=== PATIENT | male | born 1985 | race Caucasian/White ===

== ENCOUNTER → 2024-01-21 13:30 | Outpatient (BNV) | payer OTHER, SELFPAY | PROVIDERS: Visit Provider Psychiatry & Neurology Psychiatry | DX: F43.12 Post-traumatic stress disorder, chronic (principal); F63.89 Other impulse disorders; F33.9 Major depressive disorder, recurrent, unspecified; F41.3 Other mixed anxiety disorders; F69 Unspecified disorder of adult personality and behavior; F48.9 Nonpsychotic mental disorder, unspecified; F12.980 Cannabis use, unspecified with anxiety disorder | CPT/HCPCS: 90792; 99213 ==

== ENCOUNTER 2024-01-31 13:30 | Outpatient (RCR) | payer OTHER, SELFPAY ==
[2024-01-18 11:00] VITALS: BMI 68.1
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
[2024-01-18 12:27] VITALS: BP 130/82; PULSE 81; TEMP 36.4
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
--- NOTE | 2024-01-24 15:37 | HO.PHP ---
Client's case has been opened and reviewed in team.
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
--- NOTE | 2024-01-31 21:11 | HO.PHPPROGNO ---
Subjective Subjective Date of Service: 01/31/24 Reason For Visit: PTSD Interim History: Patient seen for follow-up, anticipating discharge at the end of program today.? Overall I'm feeling more positive . He is feeling more stable not triggered . I learned coping but still need to be used . Recognizing that he experiences cognitive dissonance. Feels more in control. Has been moving up on Trileptal and is at 600 mg BID past day. Denies adverse effects. Some improvement, feels he could titrate the dose but will hold off until provider. Says he still distrusts his family who are money hungry and different priorities than he has. He denies AI/HI and says he rather just not engage with them. Denies acute issues or concerns. Medication compliant, medications well-tolerated. Denies any adverse effects.? Mood is stable, improvements with impulsivity. Denies any hopelessness or SI. Denies thoughts of harming self or others at this time. Denies any aggressive ideation or HI. Denies any paranoia or AH or VH. Sleep, appetite, energy stable. Mental Status Exam Mental Status Exam Narrative: Alert, oriented, in no acute distress. Calm, cooperative. Mood stable, affect appropriate, calmer, less emotionally reactive. Speech normal. Thought process linear, coherent, more goal-directed. Thought content related to stressors, future-oriented,less impulsive behaviors, denies any helplessness, hopelessness or SI.? No aggressive ideation or HI. No paranoia or delusional content elicited. No evidence of psychosis. Insight and judgment fair-good. Diagnostics Vital Signs (24Hr): BMI result Body Mass Index 68.1 Assessment & Plan Assessment & Plan (1) Chronic post-traumatic stress disorder (PTSD): Status: Acute Code(s): F43.12 - Post-traumatic stress disorder, chronic (2) Other disorder of impulse control: Status: Acute Code(s): F63.89 - Other impulse disorders (3) MDD (major depressive disorder), recurrent episode: Status: Acute Code(s): F33.9 - Major depressive disorder, recurrent, unspecified (4) Other mixed anxiety disorders: Status: Acute Code(s): F41.3 - Other mixed anxiety disorders (5) Mental and behavioral problem in adult: Status: Acute Code(s): F69 - Unspecified disorder of adult personality and behavior; F48.9 - Nonpsychotic mental disorder, unspecified Assessment and Plan: r/o cluster B traits (6) Cannabis use with anxiety disorder: Status: Acute Code(s): F12.980 - Cannabis use, unspecified with anxiety disorder Plan Discharge from [facility] Continue regular medications Refills sent to pharmacy Will defer further medication management to outpatient provider *Safety plan reviewed *Discharge diagnoses, treatment course, discharge plan have been reviewed with patient (including medication regime, medication management, potential side effects) as well as treatment rationale were also revisited *Discharge paperwork signed and given to patient, copy sent for scanning to chart Patient educated on: diagnosis, medication risk/benefits and substance abuse Informed Consent: understands Reason for contiued partial hosp. stay Substantial Risk for: stable for discharge Certification I certify that partial hospital treatment is medically necessary due to the symptoms and problems resulting from the patient's mental illness and the failure to treat the patient at the partial hospital level of care would likely result in the patient requiring inpatient psychiatric care which could not be prevented at a less intensive level of care. Total time managing care of this patient today _30___ minutes. Discharge Plan Discharge Attending provider: Temitope De La Torre Medications: New oxcarbazepine 600 mg tablet 600 mg PO BID Qty: 30 0RF Continued atorvastatin 20 mg tablet 20 mg PO DAILY sertraline 100 mg tablet 200 mg PO BEDTIME hydroxyzine pamoate 50 mg capsule 50 - 100 mg PO BEDTIME PRN (Reason: insomnia) clindamycin phosphate 1 % gel 1 appl topical BID PRN (Reason: cysts) Rx Instructions: Apply to cysts twice a day. metformin 1,000 mg tablet 1,000 mg PO BID lisinopril-hydrochlorothiazide 10-12.5 mg tablet 1 tab PO DAILY risperidone 0.5 mg tablet 0.5 mg PO TID PRN (Reason: agitation/anxiety) bupropion HCl 300 mg tablet extended release 24 hr 300 mg PO DAILY bupropion HCl 150 mg tablet extended release 24 hr 150 mg PO QAM melatonin 5 mg tablet 5 - 10 mg PO BEDTIME PRN (Reason: insomnia) Rybelsus 3 mg Tablet 3 mg PO DAILY Changed clonidine HCl 0.2 mg tablet 0.2 mg PO QID PRN (Reason: anxiety, sleep) Qty: 30 0RF Stand Alone Forms: Patient Portal Discharge page Patient Education: Post Traumatic Stress Disorder (DC) Print Language: Chilean
== END 2024-01-31 23:59 | disposition home or self-care (01) ==
LOC: HO.PHPA 13:30
PROVIDERS: Visit Provider Psychiatry & Neurology Psychiatry
DX: F43.12 Post-traumatic stress disorder, chronic (principal); F63.89 Other impulse disorders; F33.9 Major depressive disorder, recurrent, unspecified; F41.3 Other mixed anxiety disorders; F69 Unspecified disorder of adult personality and behavior; F48.9 Nonpsychotic mental disorder, unspecified; F12.980 Cannabis use, unspecified with anxiety disorder; Z79.899 Other long term (current) drug therapy
CPT/HCPCS: 90791; 90853

== ENCOUNTER → 2025-01-26 10:15 | Outpatient (BNV) | payer OTHER, SELFPAY | PROVIDERS: Visit Provider Psychiatry & Neurology Psychiatry | DX: F43.12 Post-traumatic stress disorder, chronic (principal); F63.89 Other impulse disorders; F33.9 Major depressive disorder, recurrent, unspecified; F41.3 Other mixed anxiety disorders; F12.980 Cannabis use, unspecified with anxiety disorder | CPT/HCPCS: 90792 ==

== ENCOUNTER 2025-02-13 10:15 | Outpatient (RCR) | payer OTHER, SELFPAY ==
[2025-01-23 11:30] VITALS: BP 124/80; PULSE 78; RESP 18; TEMP 36.4; BMI 70.2
--- NOTE | 2025-01-26 10:42 | PC.ADMIT ---
Irving is a 40 year old male referred to [facility] by his therapist Laurie Xavier. When asked how he felt he reported endorsing 10/10 depression, 5/10 anxiety, when asked if he had any thoughts of wanting to hurt or kill self stated No. When asked if he had any thoughts of wanting to hurt or kill others stated No. He reports that he lost his cat three weeks ago, That was a huge loss for me, I had him for fourteen years. He also talks about how the loss of his mother to date still affects him. He reports struggling with childhood memories and trauma. He stated I don't know how much this program is going to help as I don't like being around people. He was given given education on the program as well ass we discussed some individual goals. He reports that he has a good support system at home girlfriend, sister and therapist are very supportive. Safety plan reviewed, he was given a copy.
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
--- NOTE | 2025-01-29 16:26 | HO.IOP ---
Client's case was opened and reviewed in teams.
--- NOTE | 2025-02-13 21:39 | P.PNPSP_ITS ---
Subjective Subjective Date of Service: 02/13/25 Reason For Visit: PTSD Interim History: Patient seen for follow-up, anticipating discharge at the end of program today.? Reflects on a number of different types of trauma responses - identifies fight and flop as his automatic responses. Patient admits to struggling in group setting, feels he doesnt have much in common with his peers. Feels they tend to be victims or see themselves as victims. He sees himself as the aggressor, the bully of bullies which he felt good about when his mother was alive and had someone to protect. He continues to struggle with grief and loss of his mother. Loss of indentity. He has good insight into his issues. He shares that his outpatient provider challenged him to find commonality identify with the other patients (instead of focusing on their differences). encouraging him to stay longer Denies adverse effects. Some improvement, feels he could titrate the dose but will hold off until provider. Continues with difficult relationship with relatives. He denies AI/HI and says he rather just not engage with them. Denies acute issues or concerns. Medication compliant, medications well-tolerated. Denies any adverse effects.? Mood is stable, improvements with impulsivity. Denies any hopelessness or SI. Denies thoughts of harming self or others at this time. Denies any aggressive ideation or HI. Denies any paranoia or AH or VH. Sleep, appetite, energy stable. Mental Status Exam Mental Status Exam Narrative: Alert, oriented, in no acute distress. Calm, cooperative. Mood stable, affect appropriate, calmer, less emotionally reactive. Speech normal. Thought process linear, coherent, more goal-directed. Thought content related to stressors, future-oriented,less impulsive behaviors, denies any helplessness, hopelessness or SI.? No aggressive ideation or HI. No paranoia or delusional content elicited. No evidence of psychosis. Insight and judgment fair-good. Diagnostics Vital Signs (24Hr): BMI result Body Mass Index 70.2 Assessment & Plan Assessment & Plan (1) Chronic post-traumatic stress disorder (PTSD): Status: Acute Code(s): F43.12 - Post-traumatic stress disorder, chronic (2) Other disorder of impulse control: Status: Acute Code(s): F63.89 - Other impulse disorders (3) MDD (major depressive disorder), recurrent episode: Status: Acute Code(s): F33.9 - Major depressive disorder, recurrent, unspecified (4) Other mixed anxiety disorders: Status: Acute Code(s): F41.3 - Other mixed anxiety disorders (5) Mental and behavioral problem in adult: Status: Acute Code(s): F69 - Unspecified disorder of adult personality and behavior; F48.9 - Nonpsychotic mental disorder, unspecified Assessment and Plan: r/o cluster B traits (6) Cannabis use with anxiety disorder: Status: Acute Code(s): F12.980 - Cannabis use, unspecified with anxiety disorder Plan Discharge from IOP Continue regular medications: risperidone 0.5 mg TID prn agitation (takes every AM, usually take BID, sometimes tid) clonidine 0.2 mg QID prn anxiety, sleep Wellbutrin XL 450 mg qam oxcarbazepine 450 mg BID sertraline 200 mg qhs hydroxyzine 50-100 mg qhs prn sleep melatonin prn other regular medications - metformin 1000 mg BID, atorvastatin 20 mg, lisinopril HCTZ, clindamycin topical) No refills needed today Will defer further medication management to outpatient provider *Safety plan reviewed *Discharge diagnoses, treatment course, discharge plan have been reviewed with patient (including medication regime, medication management, potential side effects) as well as treatment rationale were also revisited *Discharge paperwork signed and given to patient, copy sent for scanning to chart Patient educated on: diagnosis, medication risk/benefits and substance abuse Informed Consent: understands Reason for contiued partial hosp. stay Substantial Risk for: stable for discharge Certification I certify that the patient needs IOP Services for a minimum of 9 hours per week of therapeutic services. I certify the patient is experiencing symptoms of such intensity that they are unable to be safely treated in a less intensive setting and would otherwise require admission to a more intensive level of care. Total time managing care of this patient today __30__ minutes. Discharge Plan Discharge Attending provider: Temitope De La Torre Medications: Continued atorvastatin 20 mg tablet 20 mg PO DAILY sertraline 100 mg tablet 200 mg PO BEDTIME hydroxyzine pamoate 50 mg capsule 50 - 100 mg PO BEDTIME PRN (Reason: insomnia) clindamycin phosphate 1 % gel 1 appl topical BID PRN (Reason: cysts) Rx Instructions: Apply to cysts twice a day. metformin 1,000 mg tablet 1,000 mg PO BID lisinopril-hydrochlorothiazide 10-12.5 mg tablet 1 tab PO DAILY risperidone 0.5 mg tablet 0.5 mg PO TID PRN (Reason: agitation/anxiety) bupropion HCl 300 mg tablet extended release 24 hr 300 mg PO DAILY bupropion HCl 150 mg tablet extended release 24 hr 150 mg PO QAM melatonin 5 mg tablet 5 - 10 mg PO BEDTIME PRN (Reason: insomnia) clonidine HCl 0.2 mg tablet 0.2 mg PO QID PRN (Reason: anxiety, sleep) Qty: 30 0RF oxcarbazepine 150 mg tablet 150 mg PO BID oxcarbazepine 300 mg tablet 300 mg PO BID glipizide 5 mg tablet 5 mg PO BID Stand Alone Forms: Patient Portal Discharge page Patient Education: Mood Disorders (ED), Mood Disorders (DC) Print Language: [place]
== END 2025-02-13 23:59 | disposition home or self-care (01) ==
LOC: HO.IOP 10:15
PROVIDERS: Visit Provider Psychiatry & Neurology Psychiatry
DX: F43.12 Post-traumatic stress disorder, chronic (principal); F63.89 Other impulse disorders; F33.9 Major depressive disorder, recurrent, unspecified; F41.3 Other mixed anxiety disorders; F69 Unspecified disorder of adult personality and behavior; F48.9 Nonpsychotic mental disorder, unspecified; F12.980 Cannabis use, unspecified with anxiety disorder; Z79.899 Other long term (current) drug therapy
CPT/HCPCS: 90791; S9480